=== PATIENT | female | born 1950 | race Two or more races ===

== ENCOUNTER 2017-07-12 15:34 | Emergency (ER) | payer MEDICAID ==
[~2017-07-12] VITALS: Ht 162.6 cm; Wt 68.0 kg
[2017-07-12] MEDS ORDERED: HYDROCODONE/APAP 5/325MG 1 EACH TABLET ONE (16:29)
[2017-07-12] MEDS ORDERED: HYDROCODONE/APAP 5/325MG 1 EACH TABLET PO ONE (16:30)
--- NOTE | 2017-07-12 16:48 | NUR ---
PT TAKEN TO CT.
[2017-07-12] MEDS ORDERED: BENAZEPRIL HCL 10 MG TABLET ONE (16:50)
[2017-07-12] MEDS ORDERED: BENAZEPRIL HCL 10 MG TABLET PO ONE (17:00)
[2017-07-12 18:14] VITALS: BP 137/64
== END 2017-07-12 18:15 | disposition home or self-care (01) ==
LOC: ER 15:37
DX: S13.4XXA Sprain of ligaments of cervical spine, initial encounter (principal); M54.5 Low back pain; M25.562 Pain in left knee; I10 Essential (primary) hypertension; V49.59XA Passenger injured in collision with other motor vehicles in traffic accident, initial encounter; Y93.89 Activity, other specified; Y92.488 Other paved roadways as the place of occurrence of the external cause; Y99.8 Other external cause status
CPT/HCPCS: 72125; 73562; 74176; 99284; A4606; Z7610